=== PATIENT | female | born 1995 | race Hispanic/Latino ===

== ENCOUNTER 2017-01-19 09:29 | Outpatient (CLI) | payer OTHER ==
--- NOTE | 2017-01-19 12:24 | ULT ---
OB ULTRASOUND: Date: 01/19/17 HISTORY: 17 weeks gestation of . FINDINGS: A single live intrauterine gestation is seen with measurements corresponding to an estimated gestati onal age of 19 weeks/2 days and GRAYSON at 06/13/17. The estimated weight measures 268 gm, or 9 oz . measurements are as follows: BPD: 4.52 cm, 19 weeks/5 days HC: 17.12 cm, 19 weeks/5 days AC: 13.24 cm, 18 weeks/5 days FL: 2.94 cm, 19 weeks/0 days heart rate measures 130 beats/minute. Cervical length measures 3.2 cm. Amniotic fluid is adequate. Placenta is anteriorly located without evidence of placenta previa. Three vessel cord, cord insertion, kidneys, bladder, stomach, four chamber heart, lateral vent ricles, cerebellum, lips/nose, spine, upper and lower extremities visualized. No definite anom alies seen. IMPRESSION: Single live intrauterine of 19 weeks/2 days estimated gestational age and GRAYSON at 06/13/17. POS: [facility]
== END 2017-01-19 09:30 | disposition home or self-care (01) ==
LOC: ULT 09:29
PROVIDERS: ATTEND Family Medicine
DX: Z3A.17 17 weeks gestation of pregnancy (principal)
CPT/HCPCS: 76805

== ENCOUNTER 2017-05-13 15:20 | Day surgery (SDC) | payer OTHER ==
[2017-05-13 16:10] VITALS: BMI 40.2
[2017-05-13 16:16] VITALS: BP 125/59; TEMP 98.2
[2017-05-13 16:43] LABS: Amnisure Internal Control QC ACCEPTABLE (ACCEPTABLE); Amnisure Test No Membranes Rupture (No Rupture)
[2017-05-13 16:56] LABS: Bilirubin Negative (Negative); Blood, Urine Negative (Negative); Clarity CLEAR (Clear); Glucose, Urine (Dipstick) Negative (Negative); Leukocyte Trace (Negative); Nitrite Negative (Negative); Protein, Urine (Dipstick) Negative (Neg-Trace); Specific Gravity, Urine 1.018 (1.002-1.036); Urobilinogen 0.2 mg/dL (0.2-1.0)
[2017-05-13 16:59] LABS: Bacteria/HPF 2+ HPF (None Seen); Hyaline Casts/LPF 0-3 HYALINE CAST LPF (0-3 Hyaline); Pathc Cast-AUWi Flag 0.13 (0-2.49); RBC/HPF 0-3 HPF (0-3); Squamous Epithelial 0-3 HPF (0-3); WBC/HPF 0-3 HPF (0-3)
[2017-05-13] MEDS ORDERED: FLU VACC QS2017-18 36 mo. & older 0.5 ML SYRINGE IM ONE (17:30)
--- NOTE | 2017-05-13 19:35 | ULT ---
LIMITED OB ULTRASOUND 05/13/17 HISTORY: Fluid leakage. Evaluate for amniotic fluid index. COMPARISON: 01/19/17. FINDINGS: Again noted is a single intrauterine gestation in cephalic presentation. The cardiac doppler demonstr ates heart tones with a heart rate ranging from 152 to 162 beats per minute. The placenta is located anteriorly without evidence of placenta previa. An amniotic fluid index is calculated at 10.7 cm. Lower uterine segment including the cervix is not well visualized due to shadowing from the head. Evaluation of anatomy was not performed with this examination. measurements were also not performed on this exam. Subjectively, there has been interval growth when compared to the prior exam . IMPRESSION: 1. Single intrauterine gestation in cephalic presentation with heart tones documented. 2. Amniotic fluid index is calculated at 10.7 cm. 3. The cervix is not well visualized due to shadowing from head. POS: [facility]
--- NOTE | 2017-05-14 09:20 | PRG ---
DATE OF SERVICE: 05/13/2017 CHIEF COMPLAINT: Vaginal discharge versus leakage of fluid. HISTORY OF PRESENT ILLNESS: At the time of presentation, Ms. Camarillo is a 22-year-old primigravida at 35 weeks 6 days who presents with complaints of intermittent clear discharge since last night. She i s unsure if it leakage of fluid or not. She states that it has happened 3 times today, the last was approximately at 1530 hours. She reports good movement. She denies anything in the vagina or intercourse in the last 24 hours. She denies any itching, odor or irritation. She denies any fever or chills. She denies any cardiovascular, respiratory, GI, or neuro complaints. OBSTETRICAL HISTORY: Present uncomplicated. PAST MEDICAL HISTORY: Negative. PAST SURGICAL HISTORY: Internal fixation of right arm. MEDICATIONS: 1. vitamins. 2. Iron. ALLERGIES: No known drug allergies. PHYSICAL EXAMINATION: VITAL SIGNS: Blood pressure 125/59, pulse 92, respiratory rate 20, temperature 98.7. GENERAL: Nontoxic appearing female in no acute distress. OBSTETRIC: heart tracing category 1, tocodynamometer shows rare contractions. LABORATORY STUDIES: AmniSure was negative. Limited ultrasound for DANIELLE shows an DANIELLE of 10. Urinalys is is negative for pyuria. ASSESSMENT AND PLAN: 1. A 35-week 6 day intrauterine with category 1 tracing. 2. Questionable leakage of fluid with negative evaluation for rupture of membranes. The patient is discharged to home with routine OB precautions. She should keep her next scheduled ap pointment with Dr. Geoffrey Wilkerson, her primary OB.
== END 2017-05-13 18:18 | disposition home or self-care (01) ==
LOC: L&D/OP 15:20
PROVIDERS: ATTEND Family Medicine
DX: O99.89 Other specified diseases and conditions complicating pregnancy, childbirth and the puerperium (principal); N89.8 Other specified noninflammatory disorders of vagina; O47.02 False labor before 37 completed weeks of gestation, second trimester; Z3A.35 35 weeks gestation of pregnancy; Z79.899 Other long term (current) drug therapy; Z98.890 Other specified postprocedural states; Z91.048 Other nonmedicinal substance allergy status
CPT/HCPCS: 76815; 81001; 84112; 99285

== ENCOUNTER 2017-06-16 03:03 | Inpatient (IN) | payer OTHER ==
[2017-06-16 03:44] VITALS: BMI 39.6
[2017-06-16] MEDS ORDERED: Promethazine HCl 25 MG/ML VIAL IM PRN ×2 (04:02→15:34)
[2017-06-16] MEDS ORDERED: Lactated Ringer's 1,000 ML IV SCH ×2 (04:02→16:47)
[2017-06-16] MEDS ORDERED: Ondansetron HCl/PF 4 MG/2 ML Vial IVP PRN ×3 (04:02→16:47)
[2017-06-16] MEDS ORDERED: Lactated Ringer's 1,000 ML IV PRN (04:07)
[2017-06-16 04:30] LABS: Hemoglobin 11.6 g/dL (12.0-16.0); Mean Corpuscular HGB CONC 34.2 g/dL (32.0-36.0); Mean Corpuscular Hemoglobin 32.7 pg (25.0-35.0); Mean Corpuscular Volume 95.4 fl (77.0-87.0); Mean Platelet Volume 7.2 fL (7.4-10.4); Platelet Count 241 thou/uL (130-400); RBC Distribution Width 12.4 % (11.5-14.5); Red Blood Cell (RBC) Count 3.54 mill/uL (4.00-5.20); White Blood Cell (WBC) Count 9.7 thou/uL (4.8-10.8)
[2017-06-16 05:12] LABS: HBSAg Index 0.25 S/CO (0-0.99); Hep B Surf Ag Non-Reactive S/CO (NonReactive); Syphilis Antibody Nonreactive (Nonreactive); Syphilis Antibody Index 0.03 S/CO (<1.00 Non-Reactive)
[2017-06-16] MEDS: Sodium Chloride 0.9% 10 ML ONE ×2 (07:30→08:47)
[2017-06-16] MEDS ORDERED: Bicitra 30 ML UDCUP ONE (12:55)
[2017-06-16] MEDS ORDERED: CEFAZOLIN/Water 2 GM/20 ML SYRINGE ONE (12:55)
[2017-06-16] MEDS ORDERED: Oxytocin 10 UNITS/ML VIAL ONE ×2 (13:03→13:23)
[2017-06-16] MEDS ORDERED: PHENYLEPHRINE-NS 100 MCG/ML 10 ML SYRINGE ONE ×2 (13:03→16:44)
[2017-06-16] MEDS ORDERED: ePHEDrine/0.9% NaCl/PF SYRINGE 50 mg/10 ml ONE ×2 (13:03→16:44)
[2017-06-16] MEDS ORDERED: Fentanyl 100 MCG/2 ML VIAL ONE (13:03)
[2017-06-16] MEDS ORDERED: Ondansetron HCl/PF 4 MG/2 ML Vial ONE ×2 (13:03→16:44)
[2017-06-16] MEDS ORDERED: Morphine PF 1 MG/ML SYR ONE (13:03)
[2017-06-16 13:39] LABS: Actual Bicarbonate (HCO3a) 25.8 mEq/L (22-26); Base Excess (BEa) -5.8 mEq/L (0 (+/-) 2.5)
--- NOTE | 2017-06-16 14:42 | OP ---
DATE OF PROCEDURE: 06/16/2017 TIME: 1350. PREOPERATIVE DIAGNOSES: 1. Term . 2. Non-reassuring heart tones. POSTOPERATIVE DIAGNOSES: 1. Term . 2. Non-reassuring heart tones. 3. Occult cord, plus occiput transverse. PROCEDURE: Primary low transverse section. SURGEON: Geoffrey Wilkerson M.D. [employer] ENGINEER: Dr. Randall Peralta and Dr. Moreno, resident. ANESTHESIA: Spinal. PROCEDURE IN DETAIL: This 22-year-old female, , taken to the operating room. Sh e was placed in the supine position. The abdomen was prepped and draped sterilely. heart tone s 150s. Sterile drapes were placed. A low transverse Pfannenstiel incision was made. Subcutaneous was dissected down to fascia. Fascia was opened without incident. Peritoneum was opened by blunt di ssection. A low transverse uterine incision was made. Moderate meconium was noted. Delivered baby from an OT position of prominent occult cord, was adjacent to the head. The baby was easily de livered. Baby did breathe and cry vigorously upon delivery. The cord was clamped and cut. Cord gas es were obtained. Placenta was delivered and sent to pathology. The uterus was closed in 1 layer of #1 Monocryl. One [id number]-wcozo stitch was placed on a small bleeder over the lower uterus. The a bdomen was evacuated of all clots. Hemostasis was adequate. The uterus was replaced. The abdomen w as evacuated of all clots. The fascia was closed with 0 Vicryl. Peritoneum was closed with 2-0 car sander elizabeth and the fascia was closed with 0 Vicryl. Hemostasis was adequate. The skin was closed with stap les. Estimated blood loss was 600 mL. Mother and baby did very well.
[2017-06-16] MEDS ORDERED: Ketorolac Tromethamine 30 MG/ML VIAL ONE (15:11)
[2017-06-16] MEDS ORDERED: Ketorolac Tromethamine 30 MG/ML VIAL IVP PRN ×2 (15:23→15:34)
[2017-06-16] MEDS ORDERED: Naloxone HCl 0.4 mg/ml Vial IVP PRN ×2 (15:34)
[2017-06-16] MEDS ORDERED: Naloxone HCl 0.4 mg/ml Vial IV PRN (15:34)
[2017-06-16] MEDS ORDERED: Promethazine HCl 25 MG SUPP PR PRN (15:34)
[2017-06-16] MEDS ORDERED: diphenhydrAMINE 50 MG/ML VIAL IVP PRN (15:34)
[2017-06-16] MEDS ORDERED: Eucerin (Mineral Oil/Petrolatum,White) 30 gm Jar TOP PRN (15:34)
[2017-06-16] MEDS ORDERED: Communication Order-Pharmacy FS SCH (15:45)
[2017-06-16] MEDS ORDERED: Acetaminophen 1,000 MG in Premix Bag 1 BAG IVPB SCH (16:15)
[2017-06-16] MEDS ORDERED: Acetaminophen 325 MG TAB PO PRN (16:47)
[2017-06-16] MEDS ORDERED: LR w/ Pitocin 40 units/1000 ML BAG IV SCH (16:47)
[2017-06-16] MEDS ORDERED: Adacel (T-DAP) 0.5 ML VIAL IM ONE (16:47)
[2017-06-16] MEDS ORDERED: HYDROcodone/Acetaminophen 5/325 mg Tablet PO PRN (16:47)
[2017-06-16] MEDS: Ibuprofen 800 MG TAB PO SCH (23:33)
[2017-06-16] MEDS: Ferrous Sulfate 325 MG TAB PO SCH (23:33)
[2017-06-17] MEDS ORDERED: Ketorolac Tromethamine 30 MG/ML VIAL IVP PRN (03:51)
[2017-06-17 06:11] LABS: Hemoglobin 9.7 g/dL (12.0-16.0); Mean Corpuscular HGB CONC 33.2 g/dL (32.0-36.0); Mean Corpuscular Hemoglobin 31.9 pg (25.0-35.0); Platelet Count 197 thou/uL (130-400); RBC Distribution Width 12.3 % (11.5-14.5); Red Blood Cell (RBC) Count 3.03 mill/uL (4.00-5.20); White Blood Cell (WBC) Count 9.2 thou/uL (4.8-10.8)
[2017-06-17] MEDS: HYDROcodone/Acetaminophen 5/325 mg Tablet PO PRN ×3 (08:44→22:29)
[2017-06-17] MEDS: Ibuprofen 800 MG TAB PO SCH ×3 (08:47→22:28)
[2017-06-17] MEDS: Ferrous Sulfate 325 MG TAB PO SCH (08:47)
[2017-06-17] MEDS: Simethicone Chewable 80 MG TAB PO PRN (20:50)
[2017-06-18] MEDS: Ferrous Sulfate 325 MG TAB PO SCH ×3 (01:58→21:30)
[2017-06-18] MEDS: HYDROcodone/Acetaminophen 5/325 mg Tablet PO PRN ×2 (06:32→16:43)
[2017-06-18] MEDS: Ibuprofen 800 MG TAB PO SCH ×3 (06:33→21:30)
[2017-06-18] MEDS: Simethicone Chewable 80 MG TAB PO PRN (16:42)
[2017-06-19] MEDS: HYDROcodone/Acetaminophen 5/325 mg Tablet PO PRN (06:06)
[2017-06-19] MEDS: Ibuprofen 800 MG TAB PO SCH (06:08)
[2017-06-19 07:53] VITALS: BP 108/52; TEMP 98.1
[2017-06-19] MEDS: Ferrous Sulfate 325 MG TAB PO SCH (08:44)
--- NOTE | 2017-06-19 11:05 | DIS ---
DATE OF ADMISSION: 06/16/2017 DATE OF DISCHARGE: 06/19/2017 DISCHARGE DIAGNOSES: 1. Term . 2. Primip. 3. Non-reassuring heart tracing. 4. Occult cord. DISCHARGE MEDICATIONS: Motrin 800 q.8 hours p.r.n. pain, Jackman 5/325 one to two p.o. q.6 hours p.r.n . pain, vitamins q. day and iron q. day. BRIEF HISTORY: This is a 22-year-old Latin-[place] female, G1, P0, who presented with spontaneous r upture of membranes. Her course was uncomplicated. Throughout her labor, she was having va riable decelerations until she had a late deceleration lasting for 1 minute. This resolved, but sheffield claudio, she became recurrent and was decided to proceed with a primary low transverse section. She was at 40 and 5/7th week. HOSPITAL COURSE: The patient was taken back to the operating room. She underwent a primary low bermudez sverse section without complication. She did very well with minimal blood loss. Postoperat ively, she did fine. No complications. Minimal bleeding. Her initial hemoglobin and hematocrit was 11.6 and 33.8. Her postop was 9.7 and 29.1. She is now ready for discharge and will follow up in t he office in 2 weeks. The baby will follow up in 3 days.
== END 2017-06-19 10:45 | disposition home or self-care (01) | DRG 766 ==
LOC: L&D/OP 03:03 → L&D 03:52 → 3SW 16:11
PROVIDERS: ADMIT Family Medicine; ATTEND Family Medicine
PROC: 10D00Z1 Extraction of Products of Conception, Low, Open Approach (ICD-10-PCS; principal; 2017-06-16)
DX: O48.0 Post-term pregnancy (principal); O69.0XX0 Labor and delivery complicated by prolapse of cord, not applicable or unspecified; O76 Abnormality in fetal heart rate and rhythm complicating labor and delivery; Z3A.40 40 weeks gestation of pregnancy; Z37.0 Single live birth
CPT/HCPCS: 36415; 51702; 82805; 85027; 86780; 87340; 88307; 99285; A4216; J0131; J0595; J1885; J2274; J2405; J2590; J3010